=== PATIENT | male | born 2000 | race Caucasian/White ===

== ENCOUNTER 2022-01-30 18:39 | Emergency (ER) | payer BC ==
[~2022-01-30] VITALS: Ht 188 cm; Wt 86.2 kg
--- NOTE | 2022-01-30 18:48 | NUR ---
PT IS IN ROOM #2B. DR EVERETT EVALUATED THE PT.
--- NOTE | 2022-01-30 19:14 | NUR ---
Xray at bedside.
[2022-01-30] MEDS ORDERED: ONDANSETRON 4 MG/2 ML VIAL IV ONE (19:15)
[2022-01-30] MEDS ORDERED: ONDANSETRON 4 MG/2 ML VIAL ONE (19:19)
[2022-01-30 19:29] LABS: HEMATOCRIT 42.5 % (36.7-47.1); MEAN CORPUSCULAR HEMOGLOBIN 31.8 uug (23.8-33.4); MEAN CORPUSCULAR VOLUME 90.4 fL (73.0-96.2); PLATELET COUNT (AUTO) 161 K/uL (152-348)
--- NOTE | 2022-01-30 19:35 | NUR ---
Pt provided urine sample, sent to lab.
[2022-01-30 19:38] LABS: CREATININE 1.3 mg/dL (0.6-1.3); POTASSIUM 3.7 mmol/L (3.5-5.1)
[2022-01-30 19:43] LABS: *BILIRUBIN,URIN NEGATIVE (NEGATIVE); *BLOOD, URINE NEGATIVE (NEGATIVE); *CLARITY,URINE CLEAR (CLEAR); *KETONES,URINE NEGATIVE (NEGATIVE); *UROBILINOGEN,URINE 0.2 E.U./dl (NORMAL); LEUKOCYTE ESTERASE ,URINE NEGATIVE (NEGATIVE); NITRITE, URINE NEGATIVE (NEGATIVE); PH,URINE 7.5 (5.0-8.0); UGLUCOSE NEGATIVE (NEGATIVE)
[2022-01-30 19:44] LABS: *COLOR,URINE STRAW (YELLOW)
[2022-01-30 19:50] LABS: BILIRUBIN,DIRECT 0.2 mg/dL (0.0-0.2); BILIRUBIN,TOTAL 0.5 mg/dL (0.2-1.0); TOTAL PROTEIN, SERUM 7.5 g/dL (6.4-8.2)
[2022-01-30 19:50] LABS: *AMPHETAMINE, URINE NEGATIVE (NEGATIVE); *CANNABINOID, URINE NEGATIVE (NEGATIVE); *COCCAINE, URINE NEGATIVE (NEGATIVE); *OPIATE, URINE NEGATIVE (NEGATIVE); *PHENCYCLIDINE SCREEN,URINE NEGATIVE (NEGATIVE)
[2022-01-30] MEDS ORDERED: IV NORMAL SALINE 1000 ML BAG IV ONE (20:45)
[2022-01-30 21:15] VITALS: BP 115/75
--- NOTE | 2022-01-30 21:15 | NUR ---
Patient discharged to home in stable condition. Written and verbal after care instructions given. Patient verbalizes understanding of instructions. Stressed follow up or return to ER for worsening s/s. Patient out of ER with steady gait, no acute signs of distress, VSS, all belongings taken, IV site discontinued, provided with copies of lab, ekg, and xray results.
== END 2022-01-30 21:16 | disposition home or self-care (01) ==
LOC: ER 18:40
DX: R06.02 Shortness of breath (principal); R07.9 Chest pain, unspecified; R11.0 Nausea; I49.8 Other specified cardiac arrhythmias; F17.290 Nicotine dependence, other tobacco product, uncomplicated
CPT/HCPCS: 36415; 71045; 80048; 80076; 80307; 81003; 82962; 83735; 83880; 84443; 85025; 85730; 93005; 96360; 99285; J2405; J7040; A4663

== ENCOUNTER 2023-04-06 22:23 | Emergency (ER) | payer BC ==
--- NOTE | 2023-04-07 07:14 | NUR ---
Arrival time was 2222 yesterday (04/06/23), departed at this time because pt is still on the ER tracker.
== END 2023-04-07 07:15 | disposition left against medical advice (07) ==
LOC: ER 22:23
DX: Z53.21 Procedure and treatment not carried out due to patient leaving prior to being seen by health care provider (principal)